=== PATIENT | female | born 1965 | race Caucasian/White ===

== ENCOUNTER 2023-01-01 14:58 | Inpatient (IN) | payer BC ==
[2023-01-01 15:14] VITALS: BMI 25.4
[2023-01-01 16:23] LABS: EOS % 0.4 % (0-4.5); HEMATOCRIT 41.5 % (32.4-45.2); HEMOGLOBIN 13.7 GM/dL (10.7-15.3); LYMPH % 25.1 % (8-40); MCH 28.9 pg (25.7-33.7); MEAN CELL VOLUME 87.6 fl (80-96); MEAN PLT VOLUME 9.2 fl (7.5-11.1); NEUT % 67.5 % (42.8-82.8); PLATELET COUNT 342 10^3/uL (134-434); RBC 4.74 M/mm3 (3.60-5.2); RDW 13.5 % (11.6-15.6)
[2023-01-01] MEDS ORDERED: METOPROLOL TARTRATE 5 MG/5 ML VIAL IVPUSH ONE (16:26)
[2023-01-01 16:34] LABS: INR 1.02 (0.83-1.09); PROTHROMBIN TIME (PATIENT) 11.8 SEC (9.7-13.0)
[2023-01-01] MEDS ORDERED: METOPROLOL TARTRATE 5 MG/5 ML VIAL ONE (16:34)
[2023-01-01 16:37] LABS: ACTIVATED PTT 29.1 SECONDS (25.2-36.5)
[2023-01-01 16:39] LABS: CHLORIDE 104 mmol/L (98-107); SODIUM 139 mmol/L (136-145)
[2023-01-01 16:41] LABS: ANION GAP 4 MMOL/L (8-16); BLOOD UREA NITROGEN 24.8 mg/dL (7-18); CALCIUM 9.7 mg/dL (8.5-10.1); CO2 31 mmol/L (21-32); GLUCOSE,RANDOM 93 mg/dL (74-106); MAGNESIUM 2.1 mg/dL (1.8-2.4)
[2023-01-01 16:42] LABS: ALBUMIN 4.1 g/dl (3.4-5.0)
[2023-01-01 16:44] LABS: CREATININE 0.7 mg/dL (0.55-1.3); SGOT/AST 18 U/L (15-37); SGPT/ALT 18 U/L (13-61)
[2023-01-01 16:46] LABS: BILIRUBIN,TOTAL 0.4 mg/dL (0.2-1); TOT PROT 7.4 g/dl (6.4-8.2)
[2023-01-01 16:47] LABS: ALK PHOS 71 U/L (45-117)
[2023-01-01] MEDS ORDERED: METOPROLOL TARTRATE 25 MG TABLET (FP) PO ONE ×2 (16:53→18:27)
[2023-01-01] MEDS ORDERED: metoPROLOL SUCCINATE 25 MG TAB.SR.24H (FP) PO ONE ×2 (16:57→18:33)
[2023-01-01 17:19] LABS: PH,URINE 6.5 (5.0-8.0); URINE APPEARANCE CLEAR; URINE BILIRUBIN NEGATIVE (NEGATIVE); URINE COLOR YELLOW; URINE GLUCOSE (UA) NEGATIVE (NEGATIVE); URINE KETONE NEGATIVE (NEGATIVE); URINE LEUK ESTERASE NEGATIVE (NEGATIVE); URINE NITRITE NEGATIVE (NEGATIVE); URINE PROTEIN NEGATIVE (NEGATIVE); URINE UROBILINOGEN 0.2 mg/dL (0.2-1.0)
[2023-01-01] MEDS: HEPARIN NA (PORCINE) 5,000 UNITS/ML 1ML VIAL SQ SCH (23:09)
[2023-01-02] MEDS: LEVOTHYROXINE NA 88 MCG TABLET (FP) PO SCH (06:28)
[2023-01-02 08:11] LABS: BASO % 0.7 % (0-2.0); EOS % 2.6 % (0-4.5); HEMATOCRIT 40.2 % (32.4-45.2); HEMOGLOBIN 13.4 GM/dL (10.7-15.3); LYMPH % 37.1 % (8-40); MCH 28.5 pg (25.7-33.7); MCHC 33.4 g/dl (32.0-36.0); MEAN CELL VOLUME 85.5 fl (80-96); MEAN PLT VOLUME 9.2 fl (7.5-11.1); MONO % 7.4 % (3.8-10.2); NEUT % 52.2 % (42.8-82.8); PLATELET COUNT 303 10^3/uL (134-434); RBC 4.71 M/mm3 (3.60-5.2); RDW 13.3 % (11.6-15.6); WHITE BLOOD COUNT 8.7 K/mm3 (4.0-10.0)
[2023-01-02 08:24] LABS: CHLORIDE 109 mmol/L (98-107); SODIUM 141 mmol/L (136-145)
[2023-01-02 08:28] LABS: BLOOD UREA NITROGEN 24.3 mg/dL (7-18); CO2 28 mmol/L (21-32); GLUCOSE,RANDOM 91 mg/dL (74-106)
[2023-01-02 08:31] LABS: CREATININE 0.6 mg/dL (0.55-1.3)
[2023-01-02 08:34] LABS: ANION GAP 5 MMOL/L (8-16)
[2023-01-02] MEDS ORDERED: METOPROLOL TARTRATE 5 MG/5 ML VIAL IVPUSH ONE ×2 (09:03→11:00)
[2023-01-02] MEDS: HEPARIN NA (PORCINE) 5,000 UNITS/ML 1ML VIAL SQ SCH ×2 (09:19→22:04)
[2023-01-02] MEDS ORDERED: DIGOXIN 0.25 MG TABLET PO ONE (09:44)
[2023-01-02] MEDS ORDERED: ASPIRIN COATED 81 MG TABLET.EC PO SCH (10:00)
[2023-01-02] MEDS ORDERED: PANTOPRAZOLE 40 MG TABLET PO SCH (10:45)
[2023-01-02] MEDS ORDERED: FAMOTIDINE 20 MG TABLET PO ONE (11:00)
[2023-01-02] MEDS ORDERED: MAG HYDROX/AL HYDROX/SIMETH 30 ML UNIT-DOSE CUP PO ONE (11:11)
[2023-01-02] MEDS ORDERED: DIGOXIN 0.25 MG TABLET PO SCH (16:00)
[2023-01-02] MEDS ORDERED: METOPROLOL TARTRATE 25 MG TABLET (FP) PO SCH ×2 (16:00)
[2023-01-02] MEDS: METOPROLOL TARTRATE 50 MG TABLET (FP) PO SCH ×2 (17:01→22:58)
[2023-01-02] MEDS ORDERED: METOPROLOL TARTRATE 50 MG TABLET (FP) PO SCH (18:00)
[2023-01-02] MEDS ORDERED: ACETAMINOPHEN 325 MG TABLET (FP) PO ONE (22:01)
[2023-01-03] MEDS: METOPROLOL TARTRATE 50 MG TABLET (FP) PO SCH ×2 (06:40)
[2023-01-03 06:52] LABS: HEMATOCRIT 42.6 % (32.4-45.2); HEMOGLOBIN 14.3 GM/dL (10.7-15.3); MCH 29.4 pg (25.7-33.7); MCHC 33.5 g/dl (32.0-36.0); MEAN CELL VOLUME 87.7 fl (80-96); MEAN PLT VOLUME 9.5 fl (7.5-11.1); PLATELET COUNT 309 10^3/uL (134-434); RBC 4.86 M/mm3 (3.60-5.2); RDW 13.4 % (11.6-15.6); WHITE BLOOD COUNT 8.8 K/mm3 (4.0-10.0)
[2023-01-03 07:03] LABS: ALBUMIN 3.4 g/dl (3.4-5.0); BLOOD UREA NITROGEN 30.4 mg/dL (7-18)
[2023-01-03 07:06] LABS: CREATININE 0.7 mg/dL (0.55-1.3)
[2023-01-03 07:07] LABS: BILIRUBIN,TOTAL 0.3 mg/dL (0.2-1); TOT PROT 6.4 g/dl (6.4-8.2)
[2023-01-03] MEDS: HEPARIN NA (PORCINE) 5,000 UNITS/ML 1ML VIAL SQ SCH (09:03)
[2023-01-03] MEDS ORDERED: LACTATED RINGERS SOLUTION 1000 ML INFUS.BAG IV ONE (09:05)
[2023-01-03] MEDS ORDERED: METOPROLOL TARTRATE 50 MG TABLET (FP) PO SCH ×4 (09:06→22:00)
[2023-01-03] MEDS ORDERED: DOCUSATE SODIUM 100 MG CAPSULE (FP) PO SCH ×2 (13:00→22:00)
[2023-01-03] MEDS: dilTIAZem HCL 30 MG TABLET PO SCH ×4 (13:42→23:34)
[2023-01-03] MEDS: LACTATED RINGERS SOLUTION 1,000 ML/1,000 ML INFUS.BAG IV SCH (13:43)
[2023-01-03] MEDS ORDERED: MAG HYDROX/AL HYDROX/SIMETH 30 ML UNIT-DOSE CUP PO SCH (14:00)
[2023-01-04] MEDS: dilTIAZem HCL 30 MG TABLET PO SCH (05:34)
[2023-01-04] MEDS: LEVOTHYROXINE NA 88 MCG TABLET (FP) PO SCH (06:03)
[2023-01-04 07:47] LABS: BLOOD UREA NITROGEN 21.1 mg/dL (7-18); CALCIUM 8.4 mg/dL (8.5-10.1)
[2023-01-04 07:52] LABS: CREATININE 0.6 mg/dL (0.55-1.3)
[2023-01-04 09:38] VITALS: RESP 16; TEMP 98
[2023-01-04 09:40] VITALS: BP 97/68; PULSE 69
[2023-01-04] MEDS ORDERED: FAMOTIDINE 20 MG TABLET PO SCH (10:00)
[2023-01-04] MEDS ORDERED: metoPROLOL SUCCINATE 25 MG TAB.SR.24H (FP) PO SCH (10:00)
[2023-01-04] MEDS ORDERED: ENOXAPARIN NA (PORCINE) 40 MG/0.4 ML DISP.SYRIN SQ SCH (10:00)
[2023-01-04] MEDS ORDERED: ASPIRIN COATED 81 MG TABLET.EC PO SCH (10:00)
[2023-01-04] MEDS: LACTATED RINGERS SOLUTION 1,000 ML/1,000 ML INFUS.BAG IV SCH (12:44)
== END 2023-01-04 13:50 | disposition home or self-care (01) | DRG 280 ==
LOC: JER 14:58 → JERBED 17:12 → INTOOBSV 17:12 → J4S 21:22 → OBSVTOIN 01-03 13:57
PROVIDERS: ADMIT Internal Medicine; ATTEND Internal Medicine
DX: I48.91 Unspecified atrial fibrillation (principal); I21.A1 Myocardial infarction type 2; U07.1 COVID-19; E03.9 Hypothyroidism, unspecified; E86.0 Dehydration
CPT/HCPCS: 0241U-QW; 36415; 71046-TC-FY; 80048; 80053; 81003; 83735; 84439; 84443; 84484; 85025; 85027; 85610; 85730; 86140; 87086; 93005; 93010; 93306-TC; 99291; G0378; J1644

== ENCOUNTER 2023-01-05 21:36 | Emergency (ER) | payer BC ==
[2023-01-05 21:46] VITALS: BP 135/77; PULSE 71; RESP 18; TEMP 98.1; BMI 26.4
[2023-01-05 23:33] LABS: BASO % 0.8 % (0-2.0); EOS % 1.5 % (0-4.5); HEMATOCRIT 39.7 % (32.4-45.2); HEMOGLOBIN 13.1 GM/dL (10.7-15.3); MCH 28.3 pg (25.7-33.7); MEAN CELL VOLUME 85.6 fl (80-96); MONO % 5.6 % (3.8-10.2); NEUT % 66.1 % (42.8-82.8); PLATELET COUNT 322 10^3/uL (134-434); RBC 4.64 M/mm3 (3.60-5.2); RDW 13.1 % (11.6-15.6); WHITE BLOOD COUNT 10.7 K/mm3 (4.0-10.0)
[2023-01-05 23:35] LABS: EPI CELLS 1 /uL (0-25.1); HYALINE CASTS 0 /uL (0-3.1); PH,URINE 6.5 (5.0-8.0); URINE APPEARANCE CLEAR; URINE BACTERIA 1 /uL (0-1359); URINE BILIRUBIN NEGATIVE (NEGATIVE); URINE COLOR YELLOW; URINE GLUCOSE (UA) NEGATIVE (NEGATIVE); URINE KETONE NEGATIVE (NEGATIVE); URINE LEUK ESTERASE NEGATIVE (NEGATIVE); URINE NITRITE NEGATIVE (NEGATIVE); URINE PROTEIN NEGATIVE (NEGATIVE); URINE RBC 19 /uL (0-23.9); URINE UROBILINOGEN 0.2 mg/dL (0.2-1.0); URINE WBC 2 /uL (0-25.8)
[2023-01-06 00:14] LABS: CALCIUM 9.2 mg/dL (8.5-10.1)
[2023-01-06 00:15] LABS: ALBUMIN 3.8 g/dl (3.4-5.0); BLOOD UREA NITROGEN 21.9 mg/dL (7-18)
[2023-01-06 00:18] LABS: CREATININE 0.7 mg/dL (0.55-1.3)
[2023-01-06 00:20] LABS: BILIRUBIN,TOTAL 0.3 mg/dL (0.2-1); TOT PROT 7.2 g/dl (6.4-8.2)
== END 2023-01-06 03:29 | disposition home or self-care (01) ==
LOC: JER 21:36
DX: R07.89 Other chest pain (principal); Z20.822 Contact with and (suspected) exposure to COVID-19
CPT/HCPCS: 0241U-QW; 36415; 71275-TC; 80053; 81003; 84484; 85025; 85379; 93005; 93010; 99285-25

== ENCOUNTER 2023-10-03 02:39 | Observation (INO) | payer BC ==
[2023-10-03] MEDS ORDERED: FAMOTIDINE 20 MG/50 ML IVPB 20 MG/50 ML MG IVPB ONE ×2 (03:36→03:45)
[2023-10-03] MEDS ORDERED: MAG HYDROX/AL HYDROX/SIMETH -MYLANTA- ORAL SUSPENSION PO ONE (03:36)
[2023-10-03] MEDS ORDERED: SODIUM CHLORIDE 0.9% 500 ML INFUS.BAG IV ONE (03:36)
[2023-10-03] MEDS ORDERED: MAG HYDROX/AL HYDROX/SIMETH 30 ML UNIT-DOSE CUP ONE (03:45)
[2023-10-03 04:22] LABS: BASO % 0.4 % (0-2.0); EOS % 1.1 % (0-4.5); HEMATOCRIT 42.1 % (32.4-45.2); LYMPH % 9.2 % (8-40); MCH 28.9 pg (25.7-33.7); MCHC 33.3 g/dl (32.0-36.0); MEAN CELL VOLUME 86.5 fl (80-96); MEAN PLT VOLUME 8.9 fl (7.5-11.1); MONO % 5.5 % (3.8-10.2); NEUT % 83.8 % (42.8-82.8); PLATELET COUNT 292 10^3/uL (134-434); RBC 4.87 M/mm3 (3.60-5.2); WHITE BLOOD COUNT 7.6 K/mm3 (4.0-10.0)
[2023-10-03 04:41] LABS: POTASSIUM 4.3 mmol/L (3.5-5.1)
[2023-10-03 04:43] LABS: ALBUMIN 3.9 g/dl (3.4-5.0); BLOOD UREA NITROGEN 14.8 mg/dL (7-18); MAGNESIUM 1.9 mg/dL (1.8-2.4)
[2023-10-03 04:46] LABS: CREATININE 0.6 mg/dL (0.55-1.3)
[2023-10-03 04:47] LABS: BILIRUBIN,TOTAL 0.4 mg/dL (0.2-1); TOT PROT 7.3 g/dl (6.4-8.2)
[2023-10-03 06:02] LABS: URINE APPEARANCE CLEAR; URINE BILIRUBIN NEGATIVE (NEGATIVE); URINE COLOR YELLOW; URINE GLUCOSE (UA) NEGATIVE (NEGATIVE); URINE KETONE NEGATIVE (NEGATIVE)
[2023-10-03 06:03] LABS: EPI CELLS 0.5 /uL (0-25.1); URINE LEUK ESTERASE NEGATIVE (NEGATIVE); URINE NITRITE NEGATIVE (NEGATIVE); URINE PROTEIN NEGATIVE (NEGATIVE); URINE RBC 0.6 /uL (0-23.9); URINE UROBILINOGEN 0.2 mg/dL (0.2-1.0); URINE WBC 0.3 /uL (0-25.8)
[2023-10-03 06:04] LABS: HYALINE CASTS 0.12 /uL (0-3.1); URINE BACTERIA 0 /uL (0-1359)
[2023-10-03 10:12] VITALS: BMI 27.3
[2023-10-03 14:09] VITALS: TEMP 98.8
[2023-10-03 14:14] VITALS: BP 125/70; PULSE 60; RESP 17
== END 2023-10-03 15:36 | disposition home or self-care (01) ==
LOC: JER 02:39 → JERBED 05:00 → J4W 09:18
PROVIDERS: ADMIT Internal Medicine; ATTEND Internal Medicine
PROC: 3E033GC Introduction of Other Therapeutic Substance into Peripheral Vein, Percutaneous Approach (ICD-10-PCS; principal; 2023-10-03)
PROC: 3E0337Z Introduction of Electrolytic and Water Balance Substance into Peripheral Vein, Percutaneous Approach (ICD-10-PCS; 2023-10-03)
DX: R00.2 Palpitations (principal); E03.9 Hypothyroidism, unspecified; R07.9 Chest pain, unspecified; I48.91 Unspecified atrial fibrillation; R19.7 Diarrhea, unspecified; R11.10 Vomiting, unspecified
CPT/HCPCS: 0241U-QW; 36415; 71046-TC-FY; 74176-TC; 80053; 81003; 83605; 83690; 83735; 84439; 84443; 84484; 85025; 87086; 93005; 93010; 99285-25; G0378

== ENCOUNTER 2024-02-08 18:33 | Emergency (ER) | payer BC ==
[2024-02-08 18:43] VITALS: BP 108/76; PULSE 65; RESP 18; TEMP 97; BMI 25.4
[2024-02-08 20:37] LABS: BASO % 0.8 % (0-2.0); EOS % 1.6 % (0-4.5); HEMATOCRIT 39.2 % (32.4-45.2); HEMOGLOBIN 12.8 GM/dL (10.7-15.3); MCH 29.1 pg (25.7-33.7); MCHC 32.7 g/dl (32.0-36.0); MEAN CELL VOLUME 88.9 fl (80-96); MEAN PLT VOLUME 8.5 fl (7.5-11.1); MONO % 6.5 % (3.8-10.2); NEUT % 64.1 % (42.8-82.8); PLATELET COUNT 306 10^3/uL (134-434); RBC 4.41 M/mm3 (3.60-5.2); RDW 13.2 % (11.6-15.6); WHITE BLOOD COUNT 8.6 K/mm3 (4.0-10.0)
[2024-02-08 20:44] LABS: INR 1.05 (0.83-1.09); PROTHROMBIN TIME (PATIENT) 12.2 SEC (9.7-13.0)
[2024-02-08 20:46] LABS: ACTIVATED PTT 31.7 SECONDS (25.2-36.5)
[2024-02-08 20:53] LABS: POTASSIUM 3.6 mmol/L (3.5-5.1)
[2024-02-08 20:55] LABS: CALCIUM 9.2 mg/dL (8.5-10.1); MAGNESIUM 2.1 mg/dL (1.8-2.4)
[2024-02-08 20:56] LABS: BLOOD UREA NITROGEN 15.9 mg/dL (7-18)
[2024-02-08 20:59] LABS: CREATININE 0.7 mg/dL (0.55-1.3)
[2024-02-08 21:00] LABS: BILIRUBIN,TOTAL 0.4 mg/dL (0.2-1); TOT PROT 6.9 g/dl (6.4-8.2)
== END 2024-02-08 23:44 | disposition home or self-care (01) ==
LOC: JER 18:33
DX: R07.89 Other chest pain (principal)
CPT/HCPCS: 36415; 71045-TC-FY; 80053; 83735; 84443; 84484; 85025; 85610; 85730; 93005; 93010; 99285-25

== ENCOUNTER 2024-08-03 14:52 | Emergency (ER) | payer BC ==
[2024-08-03 15:07] VITALS: TEMP 98.3; BMI 25.4
[2024-08-03] MEDS ORDERED: METOPROLOL TARTRATE 5 MG/5 ML VIAL ONE (15:22)
[2024-08-03] MEDS: METOPROLOL TARTRATE 5 MG/5 ML VIAL IVPUSH ONE (15:32)
[2024-08-03] MEDS: SODIUM CHLORIDE 1,000 ML IV STA (15:32)
[2024-08-03 15:35] LABS: BASO % 0.3 % (0-2.0); EOS % 0.8 % (0-4.5); HEMOGLOBIN 14.6 GM/dL (10.7-15.3); LYMPH % 20.7 % (8-40); MCH 29.7 pg (25.7-33.7); MCHC 34.1 g/dl (32.0-36.0); MEAN PLT VOLUME 8.5 fl (7.5-11.1); MONO % 6.4 % (3.8-10.2); NEUT % 71.8 % (42.8-82.8); PLATELET COUNT 371 10^3/uL (134-434); RBC 4.94 M/mm3 (3.60-5.2)
[2024-08-03 15:55] LABS: POTASSIUM 3.9 mmol/L (3.5-5.1)
[2024-08-03 15:58] LABS: CALCIUM 10.3 mg/dL (8.5-10.1)
[2024-08-03 15:59] LABS: ALBUMIN 4.2 g/dl (3.4-5.0); BLOOD UREA NITROGEN 18.4 mg/dL (7-18); MAGNESIUM 2.3 mg/dL (1.8-2.4)
[2024-08-03 16:02] LABS: BILIRUBIN,TOTAL 0.3 mg/dL (0.2-1); CREATININE 0.8 mg/dL (0.55-1.3)
[2024-08-03 16:03] LABS: TOT PROT 7.8 g/dl (6.4-8.2)
[2024-08-03 18:55] VITALS: BP 112/87; PULSE 103; RESP 20
== END 2024-08-03 18:58 | disposition home or self-care (01) ==
LOC: JER 14:52
PROC: 3E033GC Introduction of Other Therapeutic Substance into Peripheral Vein, Percutaneous Approach (ICD-10-PCS; principal; 2024-08-03)
PROC: 3E0337Z Introduction of Electrolytic and Water Balance Substance into Peripheral Vein, Percutaneous Approach (ICD-10-PCS; 2024-08-03)
DX: I48.91 Unspecified atrial fibrillation (principal); R00.2 Palpitations; Z20.822 Contact with and (suspected) exposure to COVID-19
CPT/HCPCS: 0241U-QW; 36415; 71045-TC-FY; 80053; 83735; 84443; 84484; 85025; 93005; 93010; 99285-25

== ENCOUNTER 2024-08-04 09:12 | Observation (INO) | payer BC ==
[2024-08-04] MEDS: SODIUM CHLORIDE 0.9% 500 ML INFUS.BAG IV ONE (09:50)
[2024-08-04 10:15] LABS: BASO % 1.2 % (0-2.0); EOS % 3.2 % (0-4.5); HEMATOCRIT 42.5 % (32.4-45.2); HEMOGLOBIN 13.9 GM/dL (10.7-15.3); LYMPH % 32.1 % (8-40); MCH 29.2 pg (25.7-33.7); MCHC 32.7 g/dl (32.0-36.0); MEAN CELL VOLUME 89.3 fl (80-96); MEAN PLT VOLUME 9.1 fl (7.5-11.1); MONO % 4.8 % (3.8-10.2); NEUT % 58.7 % (42.8-82.8); PLATELET COUNT 343 10^3/uL (134-434); RBC 4.76 M/mm3 (3.60-5.2); RDW 13.8 % (11.6-15.6); WHITE BLOOD COUNT 8.3 K/mm3 (4.0-10.0)
[2024-08-04 10:19] LABS: INR 0.94 (0.83-1.09); PROTHROMBIN TIME (PATIENT) 10.8 SEC (9.7-13.0)
[2024-08-04 10:21] LABS: ACTIVATED PTT 30.4 SECONDS (25.2-36.5)
[2024-08-04 10:47] LABS: ALBUMIN 3.8 g/dl (3.4-5.0); BLOOD UREA NITROGEN 21.4 mg/dL (7-18); CALCIUM 9.1 mg/dL (8.5-10.1)
[2024-08-04] MEDS ORDERED: METOPROLOL TARTRATE 5 MG/5 ML VIAL ONE (10:47)
[2024-08-04 10:50] LABS: CREATININE 0.8 mg/dL (0.55-1.3)
[2024-08-04] MEDS: METOPROLOL TARTRATE 5 MG/5 ML VIAL IVPUSH ONE ×3 (10:50→17:02)
[2024-08-04 10:51] LABS: BILIRUBIN,TOTAL 0.5 mg/dL (0.2-1); TOT PROT 7.2 g/dl (6.4-8.2)
[2024-08-04] MEDS ORDERED: ACETAMINOPHEN INJECTION 100 ML ONE (11:33)
[2024-08-04] MEDS ORDERED: LIDOCAINE 4% PATCH TP ONE (11:33)
[2024-08-04] MEDS: ACETAMINOPHEN 1000 MG/100 ML BAG IVPB ONE ×2 (11:38→23:13)
[2024-08-04] MEDS: LIDOCAINE 4% PATCH TP ONE (11:38)
[2024-08-04] MEDS ORDERED: metoPROLOL SUCCINATE 25 MG TAB.SR.24H (FP) PO ONE (11:49)
[2024-08-04] MEDS: metoPROLOL SUCCINATE 25 MG TAB.SR.24H (FP) PO ONE (11:55)
[2024-08-04] MEDS ORDERED: METOPROLOL TARTRATE 5 MG/5 ML VIAL IVPUSH PRN (12:50)
[2024-08-04 12:59] VITALS: BMI 25.0
[2024-08-04] MEDS: SODIUM CHLORIDE 1,000 ML IV STA (13:05)
[2024-08-04] MEDS: METOPROLOL TARTRATE 25 MG TABLET (FP) PO ONE (16:10)
[2024-08-04] MEDS: FAMOTIDINE 20 MG TABLET PO SCH (16:27)
[2024-08-04] MEDS: MAG HYDROX/AL HYDROX/SIMETH 30 ML UNIT-DOSE CUP PO ONE (16:27)
[2024-08-04] MEDS: LIDOCAINE PATCH REMOVAL MC SCH (21:48)
[2024-08-05 00:11] VITALS: RESP 18
[2024-08-05] MEDS: LEVOTHYROXINE NA 75 MCG TABLET (FP) PO SCH (06:25)
[2024-08-05] MEDS: ASPIRIN COATED 81 MG TABLET.EC PO SCH (09:06)
[2024-08-05] MEDS: MAG HYDROX/AL HYDROX/SIMETH 30 ML UNIT-DOSE CUP PO ONE (18:26)
[2024-08-05 19:02] VITALS: BP 114/81; PULSE 68; TEMP 98.1
== END 2024-08-05 19:05 | disposition home or self-care (01) ==
LOC: JER 09:12 → JERBED 10:52 → INTOOBSV 10:52 → UNDOADMOB 10:52 → JERBED 11:29 → J4W 13:12 → JERBED 13:12
PROVIDERS: ADMIT Internal Medicine; ATTEND Internal Medicine
PROC: 3E033NZ Introduction of Analgesics, Hypnotics, Sedatives into Peripheral Vein, Percutaneous Approach (ICD-10-PCS; principal; 2024-08-04)
PROC: 3E033GC Introduction of Other Therapeutic Substance into Peripheral Vein, Percutaneous Approach (ICD-10-PCS; 2024-08-04)
PROC: 3E0337Z Introduction of Electrolytic and Water Balance Substance into Peripheral Vein, Percutaneous Approach (ICD-10-PCS; 2024-08-04)
DX: I48.20 Chronic atrial fibrillation, unspecified (principal); I48.91 Unspecified atrial fibrillation; E03.9 Hypothyroidism, unspecified; T44.7X6A Underdosing of beta-adrenoreceptor antagonists, initial encounter; Z91.148 Patient's other noncompliance with medication regimen for other reason; Z88.8 Allergy status to other drugs, medicaments and biological substances
CPT/HCPCS: 36415; 80053; 84439; 84443; 84484; 85025; 85610; 85730; 93005; 93010; 99291; G0378; J0131